=== PATIENT | female | born 1945 | race African-American/Black ===

== ENCOUNTER 2020-07-15 10:58 | Inpatient (IN) | payer MEDICARE, OTHER ==
[~2020-07-15] VITALS: Ht 157.5 cm; Wt 115.4 kg
[~2020-07-15 10:58] MED LIST: ATENOLOL PO; BUMETANIDE PO; CLIN300C12 PO; DOXAZOSIN PO; FAMOTIDINE PO; FURO-152 PO; GABAPENTIN PO; HYDR-1348 PO; HYDRALAZINE PO; LOSARTAN; MEGESTROL PO; METOCLOPRAMIDE; METOCLOPRAMIDE PO; MINO2.5T19 PO; POTASSIUM CHL PO; PRAMIPEXOLE; PRIMIDONE; SIMVASTATIN PO
[2020-07-15] MEDS ORDERED: IBUPROFEN 600MG TABLET PO STA ×2 (11:32)
[2020-07-15 12:54] LABS: CLARITY URINE CLEAR (CLEAR); COLOR URINE YELLOW (YELLOW); KETONES URINE TRACE (NEGATIVE); LEUKOCYTE ESTERASE URINE NEGATIVE (NEGATIVE); NITRITE URINE NEGATIVE (NEGATIVE); OCCULT BLOOD URINE NEGATIVE (NEGATIVE); PROTEIN URINE NEGATIVE (NEGATIVE); SPECIFIC GRAVITY URINE 1.021 (1.005-1.030); UROBILINOGEN URINE 0.2 E.U./dL (0.2-1.0)
[2020-07-15] MEDS ORDERED: HYDROCODONE/ACETAMINOPHEN 5/325MG TABLET PO STA (13:30)
[2020-07-15] MEDS ORDERED: ACETAMINOPHEN 325MG TABLET PO PRN (17:30)
[2020-07-15 19:15] LABS: BASOPHILS % 0.9 % (0.0-2.0); EOSINOPHILS % 1.8 % (0.0-5.0); HEMATOCRIT. 32.3 % (36.0-48.0); HEMOGLOBIN. 10.8 g/dL (12.0-16.0); LYMPHOCYTES % 13.1 % (20.0-50.0); MEAN CORPUSCULAR HEMOGLOBIN 29.1 pg (28.0-32.0); MEAN CORPUSCULAR VOLUME 86.7 fL (81.0-99.0); MEAN PLATELET VOLUME 8.8 fl (7.4-10.4); MONOCYTES % 11.8 % (2.0-8.0); NEUTROPHILS % 72.4 % (40.0-76.0); PLATELET 283 x1000/uL (130-400); RED BLOOD CELL COUNT 3.72 mill/uL (4.2-5.4); RED CELL DISTRIBUTION WIDTH 14.6 % (11.6-14.6)
[2020-07-15 19:20] LABS: CHLORIDE 108 mEq/L (98-107)
[2020-07-15 19:24] LABS: PROTHROMBIN TIME 11.2 sec (9.6-11.0)
[2020-07-15] MEDS ORDERED: CLONIDINE 0.2MG TABLET PO PRN (21:45)
[2020-07-15] MEDS: HYDROCODONE/ACETAMINOPHEN 10/325MG TABLET PO PRN (22:37)
[2020-07-15] MEDS: HYDRALAZINE 20MG/ML VIAL IV PRN (22:39)
[2020-07-16] VITALS (7 sets, daily range): BP systolic 150–175; BP diastolic 58–97
[2020-07-16] MEDS ORDERED: CLONIDINE 0.1MG TABLET PO PRN (01:30)
[2020-07-16] MEDS: LORATADINE 10MG TABLET PO SCH ×2 (02:30→08:49)
[2020-07-16] MEDS: HYDROCODONE/ACETAMINOPHEN 10/325MG TABLET PO PRN (07:30)
[2020-07-16] MEDS ORDERED: DOCUSATE SODIUM 100MG CAPSULE PO PRN (12:00)
[2020-07-16] MEDS ORDERED: ONDANSETRON HCL 4MG/2ML INJ IV PRN (12:00)
[2020-07-16] MEDS ORDERED: MORPHINE SULFATE 2 MG/ML CPJ (NOT FOR IM USE) IV PRN (12:00)
[2020-07-16] MEDS ORDERED: ACETAMINOPHEN 650MG SUPP PR PRN (12:00)
[2020-07-16] MEDS ORDERED: GUAIFENESIN 200MG/10ML SUGAR FREE UDC PO PRN (12:00)
[2020-07-16] MEDS ORDERED: IPRATROPIUM/ALBUTEROL 0.5-3(2.5)MG/3ML NEB NEB PRN (12:00)
[2020-07-16] MEDS ORDERED: MAGNESIUM/ALUMINUM HYDROXIDE/SIMETHICONE 30ML UDC PO PRN (12:00)
[2020-07-16] MEDS ORDERED: NA PHOS,M-B/NA PHOS,DI-BA ENEMA 118ML PR PRN (12:00)
[2020-07-16] MEDS: ENOXAPARIN 30MG/0.3ML SYR SUBCUT SCH (14:50)
[2020-07-16] MEDS: CLONIDINE 0.1MG TABLET PO PRN ×2 (14:50→23:59)
[2020-07-16] MEDS: LORAZEPAM 0.5MG TABLET PO PRN ×2 (14:51→23:59)
[2020-07-16 16:50] LABS: BASOPHILS % 0.9 % (0.0-2.0); EOSINOPHILS % 1.5 % (0.0-5.0); HEMATOCRIT. 32.5 % (36.0-48.0); HEMOGLOBIN. 11.1 g/dL (12.0-16.0); LYMPHOCYTES % 13.3 % (20.0-50.0); MEAN CORPUSCULAR HEMOGLOBIN 29.3 pg (28.0-32.0); MEAN PLATELET VOLUME 8.3 fl (7.4-10.4); NEUTROPHILS % 72.3 % (40.0-76.0); PLATELET 278 x1000/uL (130-400); RED BLOOD CELL COUNT 3.78 mill/uL (4.2-5.4); RED CELL DISTRIBUTION WIDTH 14.3 % (11.6-14.6)
[2020-07-16 16:57] LABS: CHLORIDE 109 mEq/L (98-107)
[2020-07-16 17:02] LABS: TOTAL IRON BINDING CAPACITY 258 ug/dL (250-450)
[2020-07-16 17:24] LABS: CLARITY URINE CLEAR (CLEAR); COLOR URINE YELLOW (YELLOW); KETONES URINE NEGATIVE (NEGATIVE); LEUKOCYTE ESTERASE URINE NEGATIVE (NEGATIVE); NITRITE URINE NEGATIVE (NEGATIVE); OCCULT BLOOD URINE 1+ (NEGATIVE); PH URINE 7.5 (4.5-8.0); PROTEIN URINE NEGATIVE (NEGATIVE); SPECIFIC GRAVITY URINE 1.011 (1.005-1.030); UROBILINOGEN URINE 0.2 E.U./dL (0.2-1.0)
[2020-07-16 17:36] LABS: *AMPHETAMINES SCREEN URINE NEGATIVE (NEGATIVE); *BARBITURATES SCREEN URINE NEGATIVE (NEGATIVE); *BENZODIAZEPINES SCREEN URINE NEGATIVE (NEGATIVE); *COCAINE SCREEN URINE NEGATIVE (NEGATIVE); METHADONE URINE SCREEN NEGATIVE (NEGATIVE); OPIATES URINE SCREEN PRESUMTIVE POSITIVE (NEGATIVE)
[2020-07-16 17:37] LABS: CANNABINOID URINE SCREEN NEGATIVE (NEGATIVE); PHENCYCLIDINE URINE SCREEN NEGATIVE (NEGATIVE)
[2020-07-16] MEDS: HYDRALAZINE 20MG/ML VIAL IV PRN (17:37)
[2020-07-16] MEDS: HYDROCODONE/ACETAMINOPHEN 5/325MG TABLET PO PRN (19:31)
[2020-07-16] MEDS: DIPHENHYDRAMINE 50MG/ML VIAL IV PRN (20:30)
[2020-07-16] MEDS: FAMOTIDINE 20MG TABLET PO SCH (20:31)
[2020-07-16] MEDS: AMLODIPINE 5MG TABLET PO SCH (20:31)
[2020-07-16] MEDS: ATORVASTATIN CALCIUM 20MG TABLET PO SCH (20:31)
[2020-07-17] VITALS: BP 178/76
[2020-07-17] MEDS: ENOXAPARIN 30MG/0.3ML SYR SUBCUT SCH ×2 (01:25→14:28)
[2020-07-17] MEDS: HYDROCODONE/ACETAMINOPHEN 5/325MG TABLET PO PRN (01:26)
[2020-07-17 04:00] VITALS: BP 202/91
[2020-07-17] MEDS: HYDRALAZINE 20MG/ML VIAL IV PRN (04:34)
[2020-07-17 07:11] LABS: BASOPHILS % 0.7 % (0.0-2.0); EOSINOPHILS % 1.9 % (0.0-5.0); HEMATOCRIT. 34.2 % (36.0-48.0); HEMOGLOBIN. 11.5 g/dL (12.0-16.0); LYMPHOCYTES % 12.9 % (20.0-50.0); MEAN CORPUSCULAR HEMOGLOBIN 29.7 pg (28.0-32.0); MEAN CORPUSCULAR VOLUME 88.3 fL (81.0-99.0); MEAN PLATELET VOLUME 8.8 fl (7.4-10.4); MONOCYTES % 10.1 % (2.0-8.0); NEUTROPHILS % 74.4 % (40.0-76.0); PLATELET 219 x1000/uL (130-400); RED BLOOD CELL COUNT 3.87 mill/uL (4.2-5.4); RED CELL DISTRIBUTION WIDTH 14.5 % (11.6-14.6)
[2020-07-17 07:41] LABS: CHLORIDE 112 mEq/L (98-107)
[2020-07-17 07:49] LABS: LDL CHOLESTEROL 93 mg/dL (5-100)
[2020-07-17 07:51] LABS: HDL CHOLESTEROL 40 mg/dL (40-59); T4 FREE 1.05 ng/dL (0.76-1.46)
[2020-07-17 08:04] VITALS: BP 219/85
[2020-07-17] MEDS: CLONIDINE 0.1MG TABLET PO PRN (08:32)
[2020-07-17] MEDS: AMLODIPINE 5MG TABLET PO SCH ×2 (08:32→20:36)
[2020-07-17] MEDS: LORATADINE 10MG TABLET PO SCH (08:32)
[2020-07-17] MEDS ORDERED: HYDRALAZINE HCL 25MG TABLET PO SCH (09:45)
[2020-07-17] MEDS ORDERED: LOSARTAN POTASSIUM 50 MG TABLET PO SCH (09:45)
[2020-07-17] MEDS ORDERED: HYDRALAZINE 20MG/ML VIAL IV PRN (09:45)
[2020-07-17] MEDS: CLONIDINE 0.2MG TABLET PO SCH ×3 (09:58→22:44)
[2020-07-17] MEDS ORDERED: POTASSIUM CHLORIDE 20MEQ TABLET SR PO NR (10:45)
[2020-07-17] MEDS ORDERED: HYDRALAZINE HCL 50MG TABLET PO NR (10:45)
[2020-07-17] MEDS: ATENOLOL 50 MG TABLET PO SCH ×2 (11:22→20:36)
[2020-07-17 12:00] VITALS: BP 161/78
[2020-07-17] MEDS ORDERED: HYDROCODONE/ACETAMINOPHEN 10/325MG TABLET PO PRN (13:15)
[2020-07-17] MEDS: HYDRALAZINE HCL 25MG TABLET PO SCH ×2 (14:09→22:44)
[2020-07-17 16:00] VITALS: BP 128/83
[2020-07-17] MEDS: LOSARTAN POTASSIUM 50 MG TABLET PO SCH (17:43)
[2020-07-17 20:00] VITALS: BP 141/63
[2020-07-17] MEDS ORDERED: DEXT 5%/0.45% NACL 1000ML 1,000 ML IV SCH (20:00)
[2020-07-17] MEDS: ATORVASTATIN CALCIUM 20MG TABLET PO SCH (20:36)
[2020-07-17] MEDS: FAMOTIDINE 20MG TABLET PO SCH (20:36)
[2020-07-17] MEDS ORDERED: ENOXAPARIN 30MG/0.3ML SYR SUBCUT SCH (23:00)
[2020-07-18] VITALS (47 sets, daily range): BP systolic 100–168; BP diastolic 34–98
[2020-07-18] MEDS: LORATADINE 10MG TABLET PO SCH (00:47)
[2020-07-18] MEDS ORDERED: HYDRALAZINE 10 MG in SODIUM CHLORIDE 0.9% 49.5 ML IV PRN (02:00)
[2020-07-18] MEDS: CLONIDINE 0.1MG TABLET PO PRN (02:42)
[2020-07-18] MEDS: CLONIDINE 0.2MG TABLET PO SCH ×3 (06:25→21:33)
[2020-07-18] MEDS: HYDRALAZINE HCL 25MG TABLET PO SCH ×3 (06:25→21:32)
[2020-07-18 07:57] LABS: BASOPHILS % 0.9 % (0.0-2.0); EOSINOPHILS % 3.2 % (0.0-5.0); HEMATOCRIT. 33.7 % (36.0-48.0); HEMOGLOBIN. 11.6 g/dL (12.0-16.0); LYMPHOCYTES % 11.3 % (20.0-50.0); MEAN CORPUSCULAR HEMOGLOBIN 29.6 pg (28.0-32.0); MEAN CORPUSCULAR VOLUME 86.3 fL (81.0-99.0); MEAN PLATELET VOLUME 8.4 fl (7.4-10.4); MONOCYTES % 11.9 % (2.0-8.0); NEUTROPHILS % 72.7 % (40.0-76.0); PLATELET 250 x1000/uL (130-400); RED CELL DISTRIBUTION WIDTH 14.5 % (11.6-14.6)
[2020-07-18 08:14] LABS: CHLORIDE 111 mEq/L (98-107)
[2020-07-18] MEDS: ATENOLOL 50 MG TABLET PO SCH ×2 (09:12→21:00)
[2020-07-18] MEDS: LOSARTAN POTASSIUM 50 MG TABLET PO SCH ×2 (09:12→17:00)
[2020-07-18] MEDS: AMLODIPINE 5MG TABLET PO SCH ×2 (09:13→21:32)
[2020-07-18] MEDS ORDERED: GENTAMICIN SULF 40MG/ML 2ML VIAL ONE (09:39)
[2020-07-18] MEDS ORDERED: LIDOCAINE HCL/EPINEPHRINE 1%-EPI 1:100,000 20 ML VIAL ONE (09:39)
[2020-07-18] MEDS ORDERED: THROMBIN (BOVINE) 5000 UNITS/VIAL TOP ONE (09:40)
[2020-07-18] MEDS ORDERED: HYDROMORPHONE HCL/PF 2MG/ML (OR) ONE (10:39)
[2020-07-18] MEDS ORDERED: PROPOFOL 200MG/20ML VIAL IV ONE (10:39)
[2020-07-18] MEDS ORDERED: ROCURONIUM BROMIDE 10MG/ML VIAL 5ML IV ONE ×2 (10:58→12:02)
[2020-07-18] MEDS ORDERED: ONDANSETRON HCL 4MG/2ML INJ ONE (12:08)
[2020-07-18] MEDS ORDERED: DEXAMETHASONE 4MG/ML 1ML VIAL ONE (12:08)
[2020-07-18] MEDS ORDERED: EPHEDRINE SULFATE 50MG/ML VIAL ONE (12:33)
[2020-07-18] MEDS ORDERED: PHENYLEPHRINE HCL 10 MG/ML 1ML (IV VIAL) IV ONE (12:33)
[2020-07-18] MEDS ORDERED: GLYCOPYRROLATE 0.2 MG/ML 2ML VIAL ONE (12:51)
[2020-07-18] MEDS ORDERED: NEOSTIGMINE METHYLSULFATE 1MG/ML 10 ML VIAL ONE (12:51)
[2020-07-18 13:41] LABS: BASOPHILS % 0.5 % (0.0-2.0); EOSINOPHILS % 2.8 % (0.0-5.0); HEMATOCRIT. 27.3 % (36.0-48.0); HEMOGLOBIN. 9.1 g/dL (12.0-16.0); LYMPHOCYTES % 16.3 % (20.0-50.0); MEAN CORPUSCULAR HEMOGLOBIN 29.1 pg (28.0-32.0); MEAN PLATELET VOLUME 8.4 fl (7.4-10.4); MONOCYTES % 8.5 % (2.0-8.0); NEUTROPHILS % 71.9 % (40.0-76.0); PLATELET 269 x1000/uL (130-400); RED BLOOD CELL COUNT 3.14 mill/uL (4.2-5.4); RED CELL DISTRIBUTION WIDTH 14.5 % (11.6-14.6)
[2020-07-18] MEDS ORDERED: CEFAZOLIN SODIUM 1000MG/VIAL IV SCH (14:00)
[2020-07-18] MEDS: DEXT 5%/LACTATED RINGERS 1,000 ML IV SCH ×2 (14:33→20:36)
[2020-07-18] MEDS: HYDRALAZINE 20MG/ML VIAL IV PRN (14:34)
[2020-07-18] MEDS: MORPHINE SULFATE 4 MG/ML CPJ (NOT FOR IM USE) IV PRN ×4 (14:34→21:34)
[2020-07-18] MEDS ORDERED: CEFAZOLIN 1000MG PREMIX 50 ML IV SCH (15:00)
[2020-07-18 15:40] LABS: BG BASE EXCESS -2.3 mmol/L (-2.0-2.0); BG CARBOXYHEMOGLOBIN 0.2 % (0.5-1.5); BG DEOXYHEMOGLOBIN 1.4 % (0.0-5.0); BG FRACTION INSPIRED OXYGEN 60; BG HCO3 ACT 22.6 mmol/L (22.0-26.0); BG METHEMOGLOBIN 0.4 % (0.0-1.5); BG OXYGEN SATURATION 98.6 % (92.0-98.5); BG PO2 170.9 mmHg (75.0-100.0); BG SAMPLE SITE RIGHT RADIAL; BG TOTAL HEMOGLOBIN 10.8 g/dL (12.0-18.0); BG VENT MODE MASK - SIMPLE
[2020-07-18] MEDS: NICARDIPINE 100 MG in SODIUM CHLORIDE 0.9% 60 ML IV PRN (16:51)
[2020-07-18 19:57] LABS: HEMATOCRIT 34.6 % (36.0-48.0); HEMOGLOBIN 11.4 g/dL (12.0-16.0)
[2020-07-18] MEDS: CEFAZOLIN 1000MG PREMIX 50 ML IV SCH (21:32)
[2020-07-18] MEDS: ATORVASTATIN CALCIUM 20MG TABLET PO SCH (21:32)
[2020-07-18] MEDS: FAMOTIDINE 20MG TABLET PO SCH (21:33)
[2020-07-18] MEDS: DIPHENHYDRAMINE 50MG/ML VIAL IV PRN (21:33)
[2020-07-19] VITALS (72 sets, daily range): BP systolic 87–176; BP diastolic 35–91
[2020-07-19] MEDS: MORPHINE SULFATE 4 MG/ML CPJ (NOT FOR IM USE) IV PRN ×5 (00:39→17:51)
[2020-07-19] MEDS: DEXT 5%/LACTATED RINGERS 1,000 ML IV SCH ×2 (01:55→08:32)
[2020-07-19] MEDS: CEFAZOLIN 1000MG PREMIX 50 ML IV SCH ×3 (05:13→21:02)
[2020-07-19] MEDS: HYDRALAZINE HCL 25MG TABLET PO SCH ×3 (05:14→21:03)
[2020-07-19] MEDS: CLONIDINE 0.2MG TABLET PO SCH ×3 (05:14→21:04)
[2020-07-19 05:56] LABS: HEMATOCRIT. 29.7 % (36.0-48.0); HEMOGLOBIN. 9.8 g/dL (12.0-16.0); MEAN CORPUSCULAR HEMOGLOBIN 28.9 pg (28.0-32.0); MEAN CORPUSCULAR VOLUME 87.1 fL (81.0-99.0); MEAN PLATELET VOLUME 8.7 fl (7.4-10.4); PLATELET 236 x1000/uL (130-400); RED BLOOD CELL COUNT 3.41 mill/uL (4.2-5.4); RED CELL DISTRIBUTION WIDTH 14.8 % (11.6-14.6)
[2020-07-19 06:06] LABS: CHLORIDE 112 mEq/L (98-107)
[2020-07-19] MEDS: AMLODIPINE 5MG TABLET PO SCH ×2 (08:23→21:03)
[2020-07-19] MEDS: ATENOLOL 50 MG TABLET PO SCH ×2 (08:23→21:03)
[2020-07-19] MEDS: LOSARTAN POTASSIUM 50 MG TABLET PO SCH ×2 (08:24→16:02)
[2020-07-19] MEDS: LORATADINE 10MG TABLET PO SCH (08:30)
[2020-07-19] MEDS: HYDRALAZINE 20MG/ML VIAL IV PRN ×2 (14:00→18:53)
[2020-07-19 14:26] LABS: PLATELET ESTIMATE NORMAL
[2020-07-19] MEDS: CLONIDINE 0.1MG TABLET PO PRN (15:31)
[2020-07-19] MEDS: ACETAMINOPHEN 325MG TABLET PO PRN (17:19)
[2020-07-19] MEDS: NICARDIPINE 100 MG in SODIUM CHLORIDE 0.9% 60 ML IV PRN (17:46)
[2020-07-19] MEDS: ATORVASTATIN CALCIUM 20MG TABLET PO SCH (21:03)
[2020-07-19] MEDS: FAMOTIDINE 20MG TABLET PO SCH (21:04)
[2020-07-20] VITALS (62 sets, daily range): BP systolic 94–145; BP diastolic 23–81
[2020-07-20] MEDS: CEFAZOLIN 1000MG PREMIX 50 ML IV SCH ×3 (04:27→20:06)
[2020-07-20] MEDS: MORPHINE SULFATE 4 MG/ML CPJ (NOT FOR IM USE) IV PRN ×2 (05:14→12:47)
[2020-07-20] MEDS: CLONIDINE 0.2MG TABLET PO SCH ×3 (05:56→22:06)
[2020-07-20] MEDS: HYDRALAZINE HCL 25MG TABLET PO SCH ×3 (05:56→22:06)
[2020-07-20 06:05] LABS: HEMATOCRIT. 23.7 % (36.0-48.0); HEMOGLOBIN. 7.9 g/dL (12.0-16.0); MEAN CORPUSCULAR HEMOGLOBIN 29.5 pg (28.0-32.0); MEAN CORPUSCULAR VOLUME 88.1 fL (81.0-99.0); RED BLOOD CELL COUNT 2.69 mill/uL (4.2-5.4); RED CELL DISTRIBUTION WIDTH 14.7 % (11.6-14.6)
[2020-07-20 06:18] LABS: CHLORIDE 109 mEq/L (98-107)
[2020-07-20] MEDS: ACETAMINOPHEN 325MG TABLET PO PRN ×2 (07:49→17:16)
[2020-07-20] MEDS: AMLODIPINE 5MG TABLET PO SCH ×2 (09:25→20:07)
[2020-07-20] MEDS: LOSARTAN POTASSIUM 50 MG TABLET PO SCH ×2 (09:25→16:51)
[2020-07-20] MEDS: ATENOLOL 50 MG TABLET PO SCH ×2 (09:26→20:07)
[2020-07-20] MEDS: LORATADINE 10MG TABLET PO SCH (09:26)
[2020-07-20 10:31] LABS: PLATELET ESTIMATE NORMAL
[2020-07-20 10:32] LABS: PLATELET 197 x1000/uL (130-400)
[2020-07-20 10:33] LABS: MEAN PLATELET VOLUME 9.6 fl (7.4-10.4)
[2020-07-20] MEDS: ATORVASTATIN CALCIUM 20MG TABLET PO SCH (20:06)
[2020-07-20] MEDS: FAMOTIDINE 20MG TABLET PO SCH (20:07)
[2020-07-21] VITALS (50 sets, daily range): BP systolic 96–170; BP diastolic 22–80
[2020-07-21 05:19] LABS: HEMOGLOBIN. 8.2 g/dL (12.0-16.0); MEAN CORPUSCULAR HEMOGLOBIN 28.5 pg (28.0-32.0); MEAN CORPUSCULAR VOLUME 86.4 fL (81.0-99.0); MEAN PLATELET VOLUME 8.5 fl (7.4-10.4); PLATELET 186 x1000/uL (130-400); RED BLOOD CELL COUNT 2.89 mill/uL (4.2-5.4); RED CELL DISTRIBUTION WIDTH 14.4 % (11.6-14.6)
[2020-07-21] MEDS: CEFAZOLIN 1000MG PREMIX 50 ML IV SCH (05:22)
[2020-07-21] MEDS: CLONIDINE 0.2MG TABLET PO SCH ×3 (05:22→22:00)
[2020-07-21] MEDS: HYDRALAZINE HCL 25MG TABLET PO SCH ×3 (05:22→22:01)
[2020-07-21] MEDS: MORPHINE SULFATE 4 MG/ML CPJ (NOT FOR IM USE) IV PRN ×2 (05:47→10:56)
[2020-07-21 05:56] LABS: CHLORIDE 109 mEq/L (98-107)
[2020-07-21] MEDS: LOSARTAN POTASSIUM 50 MG TABLET PO SCH ×2 (08:35→16:14)
[2020-07-21] MEDS: LORATADINE 10MG TABLET PO SCH (08:35)
[2020-07-21] MEDS: ATENOLOL 50 MG TABLET PO SCH ×2 (08:35→21:17)
[2020-07-21] MEDS: AMLODIPINE 5MG TABLET PO SCH ×2 (08:35→21:17)
[2020-07-21 09:13] LABS: PLATELET ESTIMATE NORMAL
[2020-07-21] MEDS ORDERED: LACTULOSE 20G/30ML UDC PO NR (10:30)
[2020-07-21] MEDS: HYDRALAZINE 20MG/ML VIAL IV PRN ×2 (10:56→15:02)
[2020-07-21] MEDS: DOCUSATE SODIUM 100MG CAPSULE PO SCH ×2 (11:33→16:14)
[2020-07-21] MEDS: ACETAMINOPHEN 325MG TABLET PO PRN ×2 (14:48→21:29)
[2020-07-21] MEDS: ATORVASTATIN CALCIUM 20MG TABLET PO SCH (21:16)
[2020-07-21] MEDS: FAMOTIDINE 20MG TABLET PO SCH (21:17)
[2020-07-22] VITALS (12 sets, daily range): BP systolic 101–167; BP diastolic 28–93
[2020-07-22] MEDS: CLONIDINE 0.2MG TABLET PO SCH ×3 (05:45→22:13)
[2020-07-22] MEDS: HYDRALAZINE HCL 25MG TABLET PO SCH (05:45)
[2020-07-22 06:00] LABS: CHLORIDE 107 mEq/L (98-107)
[2020-07-22 06:35] LABS: BASOPHILS % 0.3 % (0.0-2.0); HEMOGLOBIN. 8.5 g/dL (12.0-16.0); LYMPHOCYTES % 7.2 % (20.0-50.0); MEAN CORPUSCULAR HEMOGLOBIN 29.4 pg (28.0-32.0); MEAN PLATELET VOLUME 8.9 fl (7.4-10.4); MONOCYTES % 10.8 % (2.0-8.0); NEUTROPHILS % 79.7 % (40.0-76.0); PLATELET 201 x1000/uL (130-400); RED BLOOD CELL COUNT 2.88 mill/uL (4.2-5.4); RED CELL DISTRIBUTION WIDTH 14.1 % (11.6-14.6)
[2020-07-22] MEDS: DOCUSATE SODIUM 100MG CAPSULE PO SCH ×2 (09:10→17:36)
[2020-07-22] MEDS: AMLODIPINE 5MG TABLET PO SCH ×2 (09:11→21:49)
[2020-07-22] MEDS: LOSARTAN POTASSIUM 50 MG TABLET PO SCH ×2 (09:11→17:36)
[2020-07-22] MEDS: LORATADINE 10MG TABLET PO SCH (09:11)
[2020-07-22] MEDS: ATENOLOL 50 MG TABLET PO SCH ×2 (09:11→21:48)
[2020-07-22] MEDS: DOXAZOSIN MESYLATE 4MG TABLET PO SCH ×2 (12:16→17:36)
[2020-07-22] MEDS: HYDRALAZINE HCL 100MG TABLET PO SCH ×2 (14:52→22:13)
[2020-07-22] MEDS: ATORVASTATIN CALCIUM 20MG TABLET PO SCH (21:47)
[2020-07-22] MEDS: FAMOTIDINE 20MG TABLET PO SCH (21:47)
[2020-07-23] VITALS (11 sets, daily range): BP systolic 110–150; BP diastolic 32–75
[2020-07-23] MEDS: ACETAMINOPHEN 325MG TABLET PO PRN (00:15)
[2020-07-23 06:19] LABS: BASOPHILS % 0.3 % (0.0-2.0); EOSINOPHILS % 1.9 % (0.0-5.0); HEMATOCRIT. 26.5 % (36.0-48.0); HEMOGLOBIN. 8.8 g/dL (12.0-16.0); LYMPHOCYTES % 11.6 % (20.0-50.0); MEAN CORPUSCULAR HEMOGLOBIN 28.9 pg (28.0-32.0); MEAN CORPUSCULAR VOLUME 86.9 fL (81.0-99.0); MEAN PLATELET VOLUME 8.7 fl (7.4-10.4); MONOCYTES % 10.4 % (2.0-8.0); NEUTROPHILS % 75.8 % (40.0-76.0); PLATELET 263 x1000/uL (130-400); RED BLOOD CELL COUNT 3.06 mill/uL (4.2-5.4)
[2020-07-23] MEDS: HYDRALAZINE HCL 100MG TABLET PO SCH ×2 (06:26→13:45)
[2020-07-23] MEDS: CLONIDINE 0.2MG TABLET PO SCH ×2 (06:27→13:45)
[2020-07-23] MEDS: DOCUSATE SODIUM 100MG CAPSULE PO SCH ×2 (09:23→16:54)
[2020-07-23] MEDS: DOXAZOSIN MESYLATE 4MG TABLET PO SCH ×2 (09:23→16:59)
[2020-07-23] MEDS: LOSARTAN POTASSIUM 50 MG TABLET PO SCH ×2 (09:24→16:54)
[2020-07-23] MEDS: AMLODIPINE 5MG TABLET PO SCH (09:24)
[2020-07-23] MEDS: ATENOLOL 50 MG TABLET PO SCH (09:24)
[2020-07-23] MEDS: LORATADINE 10MG TABLET PO SCH (09:24)
[2020-07-23] MEDS ORDERED: HYDROCODONE/ACETAMINOPHEN 5/325MG TABLET PO PRN (14:00)
== END 2020-07-23 20:35 | DRG 519 ==
LOC: ER 10:58 → 6WST 17:21 → EDBEDREQ 17:25 → ENRESERV 21:14 → 6WST 07-16 00:41 → 6EST 07-18 01:51 → MICUSO 07-18 13:37 → MICUNO 07-18 16:00 → 3WST 07-21 16:30
PROVIDERS: ADMIT Internal Medicine; ATTEND Internal Medicine
PROC: 00NY0ZZ Release Lumbar Spinal Cord, Open Approach (ICD-10-PCS; principal; 2020-07-18)
PROC: 01NB0ZZ Release Lumbar Nerve, Open Approach (ICD-10-PCS; 2020-07-18)
PROC: 30233N1 Transfusion of Nonautologous Red Blood Cells into Peripheral Vein, Percutaneous Approach (ICD-10-PCS; 2020-07-18)
PROC: 4A11X4G Monitoring of Peripheral Nervous Electrical Activity, Intraoperative, External Approach (ICD-10-PCS; 2020-07-18)
PROC: 5A09357 Assistance with Respiratory Ventilation, Less than 24 Consecutive Hours, Continuous Positive Airway Pressure (ICD-10-PCS; 2020-07-18)
PROC: 5A09357 Assistance with Respiratory Ventilation, Less than 24 Consecutive Hours, Continuous Positive Airway Pressure (ICD-10-PCS; 2020-07-19)
PROC: 5A1935Z Respiratory Ventilation, Less than 24 Consecutive Hours (ICD-10-PCS; 2020-07-19)
PROC: 0BH17EZ Insertion of Endotracheal Airway into Trachea, Via Natural or Artificial Opening (ICD-10-PCS; 2020-07-19)
PROC: 5A09357 Assistance with Respiratory Ventilation, Less than 24 Consecutive Hours, Continuous Positive Airway Pressure (ICD-10-PCS; 2020-07-20)
PROC: 5A09357 Assistance with Respiratory Ventilation, Less than 24 Consecutive Hours, Continuous Positive Airway Pressure (ICD-10-PCS; 2020-07-22)
PROC: 5A09357 Assistance with Respiratory Ventilation, Less than 24 Consecutive Hours, Continuous Positive Airway Pressure (ICD-10-PCS; 2020-07-23)
DX: M48.061 Spinal stenosis, lumbar region without neurogenic claudication (principal); E66.2 Morbid (severe) obesity with alveolar hypoventilation; I31.3 Pericardial effusion (noninflammatory); Z68.42 Body mass index [BMI] 45.0-49.9, adult; J98.11 Atelectasis; G99.2 Myelopathy in diseases classified elsewhere; M54.40 Lumbago with sciatica, unspecified side; I11.9 Hypertensive heart disease without heart failure; E78.5 Hyperlipidemia, unspecified; E88.09 Other disorders of plasma-protein metabolism, not elsewhere classified; D64.9 Anemia, unspecified; M16.0 Bilateral primary osteoarthritis of hip; G89.29 Other chronic pain; I44.0 Atrioventricular block, first degree; Z87.891 Personal history of nicotine dependence; M54.16 Radiculopathy, lumbar region; Z20.822 Contact with and (suspected) exposure to COVID-19; Z79.82 Long term (current) use of aspirin; Z79.899 Other long term (current) drug therapy
CPT/HCPCS: 36415; 36600; 71045; 72100; 72148; 73522; 76000; 80048; 80053; 80061; 80305; 81003; 82375; 82805; 83540; 83550; 83735; 84439; 84443; 84484; 85014; 85018; 85025; 86850; 86900; 86920; 87426; 88311; 93005; 93306; 93970; 94660; 95863; 95925; 95926; 95928; 95929; 97110; 97116; 97162; 97163; 97166; 97530; 97760; 99285; C1725; J0360; J0690; J1100; J1170; J1200; J1580; J1650; J2270; J2370; J2405; J2704; J2710; J3490; J7050; J7121; P9016

== ENCOUNTER 2020-11-18 15:43 | Emergency (ER) | payer OTHER ==
[~2020-11-18] VITALS: Ht 154.9 cm; Wt 100.0 kg
[~2020-11-18 15:43] MED LIST changes: -CLIN300C12 PO; -FURO-152 PO; -METOCLOPRAMIDE; -PRIMIDONE
[2020-11-18 18:56] LABS: BASOPHILS % 0.6 % (0.0-2.0); EOSINOPHILS % 2.4 % (0.0-5.0); HEMATOCRIT. 34.5 % (36.0-48.0); HEMOGLOBIN. 11.3 g/dL (12.0-16.0); LYMPHOCYTES % 15.1 % (20.0-50.0); MEAN CORPUSCULAR HEMOGLOBIN 28.7 pg (28.0-32.0); MEAN CORPUSCULAR VOLUME 87.4 fL (81.0-99.0); MONOCYTES % 10.2 % (2.0-8.0); NEUTROPHILS % 71.7 % (40.0-76.0); PLATELET 218 x1000/uL (130-400); RED BLOOD CELL COUNT 3.95 mill/uL (4.2-5.4); RED CELL DISTRIBUTION WIDTH 16.7 % (11.6-14.6)
[2020-11-18 19:03] LABS: CHLORIDE 107 mEq/L (98-107)
[2020-11-18] MEDS ORDERED: CEFTRIAXONE 1 G PREMIX 50 ML IV ONE (20:15)
[2020-11-18] MEDS ORDERED: TRAMADOL 50MG TABLET PO PRN (23:45)
[2020-11-19] MEDS ORDERED: CLONIDINE 0.1MG TABLET PO PRN ×2 (03:30→10:30)
[2020-11-19] MEDS ORDERED: ACETAMINOPHEN 325MG TABLET PO PRN ×2 (03:30→10:30)
[2020-11-19] MEDS ORDERED: ATENOLOL 50 MG TABLET PO NR (10:30)
[2020-11-19] MEDS ORDERED: MAGNESIUM/ALUMINUM HYDROXIDE/SIMETHICONE 30ML UDC PO PRN (10:30)
[2020-11-19] MEDS ORDERED: ONDANSETRON HCL 4MG/2ML INJ IV PRN (10:30)
[2020-11-19] MEDS ORDERED: ACETAMINOPHEN 650MG SUPP PR PRN (10:30)
[2020-11-19] MEDS ORDERED: DOCUSATE SODIUM 100MG CAPSULE PO PRN (10:30)
[2020-11-19] MEDS ORDERED: IPRATROPIUM/ALBUTEROL 0.5-3(2.5)MG/3ML NEB NEB PRN (10:30)
[2020-11-19] MEDS ORDERED: LORAZEPAM 0.5MG TABLET PO PRN (10:30)
[2020-11-19] MEDS ORDERED: DIPHENHYDRAMINE 50MG/ML VIAL IV PRN (10:30)
[2020-11-19] MEDS ORDERED: CEFTRIAXONE 1 G PREMIX 50 ML IV NR (10:30)
[2020-11-19] MEDS ORDERED: NA PHOS,M-B/NA PHOS,DI-BA ENEMA 118ML PR PRN (10:30)
[2020-11-19] MEDS ORDERED: GUAIFENESIN 200MG/10ML SUGAR FREE UDC PO PRN (10:30)
[2020-11-19] MEDS ORDERED: HYDROCODONE/ACETAMINOPHEN 5/325MG TABLET PO PRN (10:30)
[2020-11-19] MEDS ORDERED: NALOXONE HCL 0.4MG/ML VIAL IV PRN (10:45)
[2020-11-19] MEDS ORDERED: ENOXAPARIN 30MG/0.3ML SYR SUBCUT SCH (11:00)
[2020-11-19] MEDS ORDERED: HYDRALAZINE 20MG/ML VIAL IV NR (13:30)
[2020-11-19] MEDS ORDERED: HYDRALAZINE HCL 50MG TABLET PO SCH (14:00)
[2020-11-19] MEDS ORDERED: VANCOMYCIN 2,000 MG in DEXT 5% WATER 500 ML IV SCH (14:00)
[2020-11-19 14:25] LABS: BASOPHILS % 0.6 % (0.0-2.0); EOSINOPHILS % 2.3 % (0.0-5.0); HEMATOCRIT. 33.8 % (36.0-48.0); LYMPHOCYTES % 9.8 % (20.0-50.0); MEAN CORPUSCULAR HEMOGLOBIN 28.1 pg (28.0-32.0); MEAN CORPUSCULAR VOLUME 86.6 fL (81.0-99.0); MEAN PLATELET VOLUME 8.6 fl (7.4-10.4); MONOCYTES % 9.2 % (2.0-8.0); NEUTROPHILS % 78.1 % (40.0-76.0); PLATELET 218 x1000/uL (130-400); RED CELL DISTRIBUTION WIDTH 16.4 % (11.6-14.6)
[2020-11-19] MEDS ORDERED: LOSARTAN POTASSIUM 50 MG TABLET PO NR (14:30)
[2020-11-19 14:33] LABS: CHLORIDE 108 mEq/L (98-107)
[2020-11-19] MEDS ORDERED: ATORVASTATIN CALCIUM 10MG TABLET PO SCH (21:00)
[2020-11-19] MEDS ORDERED: ATENOLOL 50 MG TABLET PO SCH (21:00)
[2020-11-19] MEDS ORDERED: FAMOTIDINE 20MG TABLET PO SCH (21:00)
[2020-11-19 22:50] VITALS: BP 105/57
[2020-11-20] MEDS ORDERED: CEFTRIAXONE 1,000 MG in DEXTROSE 5% WATER 50 ML IV SCH (09:00)
[2020-11-20] MEDS ORDERED: SIMVASTATIN 20 MG PO SCH (09:00)
[2020-11-20] MEDS ORDERED: VANCOMYCIN 1 G PREMIX 200 ML IV SCH (09:00)
== END 2020-11-19 18:32 | disposition home or self-care (01) ==
LOC: ER 15:43 → UNDOADMIN 21:54 → MICUSO 21:54 → EDBEDREQTM 22:00 → EDBEDREQ 22:00 → MICUSO 11-19 20:03 → 6EST 11-19 20:03
DX: L03.116 Cellulitis of left lower limb (principal); I10 Essential (primary) hypertension; M19.90 Unspecified osteoarthritis, unspecified site; E78.00 Pure hypercholesterolemia, unspecified; G47.30 Sleep apnea, unspecified; D64.9 Anemia, unspecified; Z98.1 Arthrodesis status; Z88.8 Allergy status to other drugs, medicaments and biological substances
CPT/HCPCS: 36415; 80053; 85025; 87040; 93970; 99285; J0360; J0696; J1650; J3370; J7060

== ENCOUNTER 2020-12-30 12:37 | Inpatient (IN) | payer OTHER ==
[~2020-12-30] VITALS: Ht 157.5 cm; Wt 108.5 kg
[2020-12-30 14:29] LABS: HEMATOCRIT. 30.2 % (36.0-48.0); HEMOGLOBIN. 9.6 g/dL (12.0-16.0); MEAN CORPUSCULAR HEMOGLOBIN 28.5 pg (28.0-32.0); MEAN PLATELET VOLUME 8.5 fl (7.4-10.4); PLATELET 462 x1000/uL (130-400); RED BLOOD CELL COUNT 3.36 mill/uL (4.2-5.4); RED CELL DISTRIBUTION WIDTH 16.3 % (11.6-14.6)
[2020-12-30 14:37] LABS: CHLORIDE 108 mEq/L (98-107)
[2020-12-30 15:24] LABS: PLATELET ESTIMATE INCREASED
[2020-12-30] MEDS ORDERED: MORPHINE SULFATE 4 MG/ML CPJ (NOT FOR IM USE) IV STA (15:33)
[2020-12-30] MEDS ORDERED: KETOROLAC 30MG/ML VIAL IV STA (15:33)
[2020-12-30] MEDS ORDERED: SODIUM CHLORIDE 0.9% 1000ML BAG (SEPSIS BOLUS) IV ONE (15:45)
[2020-12-30] MEDS ORDERED: VANCOMYCIN 1 G PREMIX 200 ML IV ONE (15:45)
[2020-12-30] MEDS ORDERED: CEFTRIAXONE 1 G PREMIX 50 ML IV ONE (15:45)
[2020-12-30] MEDS ORDERED: LOSARTAN POTASSIUM 25 MG TABLET PO ONE (19:00)
[2020-12-30] MEDS ORDERED: ATENOLOL 25MG TABLET PO ONE (19:00)
[2020-12-30] MEDS ORDERED: CLONIDINE 0.1MG TABLET PO ONE (19:00)
[2020-12-30] MEDS ORDERED: HYDROCHLOROTHIAZIDE 12.5MG CAPSULE PO ONE (19:00)
[2020-12-30 23:00] VITALS: BP 111/46
[2020-12-31] VITALS (7 sets, daily range): BP systolic 99–154; BP diastolic 41–82
[2020-12-31] MEDS ORDERED: NALOXONE HCL 0.4 MG/ML 1ML VIAL IV PRN (00:45)
[2020-12-31] MEDS: MORPHINE SULFATE 2 MG/ML CPJ (NOT FOR IM USE) IV PRN ×4 (01:30→21:19)
[2020-12-31] MEDS ORDERED: VANCOMYCIN 1500MG in DEXTROSE 5% WATER 250ML IV SCH (05:00)
[2020-12-31] MEDS: HYDRALAZINE HCL 50MG TABLET PO SCH ×3 (07:00→21:19)
[2020-12-31] MEDS: GABAPENTIN 300MG CAPSULE PO SCH ×3 (07:00→21:19)
[2020-12-31 07:58] LABS: HEMATOCRIT. 24.9 % (36.0-48.0); MEAN CORPUSCULAR HEMOGLOBIN 28.8 pg (28.0-32.0); MEAN CORPUSCULAR VOLUME 89.7 fL (81.0-99.0); MEAN PLATELET VOLUME 8.4 fl (7.4-10.4); PLATELET 402 x1000/uL (130-400); RED BLOOD CELL COUNT 2.78 mill/uL (4.2-5.4); RED CELL DISTRIBUTION WIDTH 16.1 % (11.6-14.6)
[2020-12-31] MEDS ORDERED: ENOXAPARIN 30MG/0.3ML SYR SUBCUT SCH (09:00)
[2020-12-31] MEDS ORDERED: ENOXAPARIN 40MG/0.4ML SYR SUBCUT SCH (09:00)
[2020-12-31] MEDS ORDERED: LORATADINE 10MG TABLET PO SCH (09:00)
[2020-12-31] MEDS ORDERED: BUMETANIDE 1MG TABLET PO SCH (09:00)
[2020-12-31] MEDS ORDERED: MINOXIDIL 2.5MG TABLET PO SCH (09:00)
[2020-12-31] MEDS: DOXAZOSIN MESYLATE 4MG TABLET PO SCH ×2 (09:23→21:19)
[2020-12-31] MEDS: FAMOTIDINE 20MG TABLET PO SCH (09:23)
[2020-12-31] MEDS: ATENOLOL 50 MG TABLET PO SCH ×2 (09:24→21:19)
[2020-12-31] MEDS: ENOXAPARIN 40MG/0.4ML SYR SUBCUT SCH (09:25)
[2020-12-31 17:26] LABS: PLATELET ESTIMATE SLIGHTLY INCREASED
[2020-12-31] MEDS ORDERED: FUROSEMIDE 40MG/4ML VIAL IVP NR (17:30)
[2020-12-31] MEDS: CEFTRIAXONE 1,000 MG in DEXTROSE 5% WATER 50 ML IV SCH (17:41)
[2020-12-31] MEDS: IPRATROPIUM/ALBUTEROL 0.5-3(2.5)MG/3ML NEB HHN SCH (20:52)
[2020-12-31] MEDS: BUDESONIDE 0.5MG/2ML NEB HHN SCH (20:53)
[2021-01-01] MEDS: IPRATROPIUM/ALBUTEROL 0.5-3(2.5)MG/3ML NEB HHN SCH ×4 (02:40→20:57)
[2021-01-01 04:00] VITALS: BP 110/46
[2021-01-01] MEDS: GABAPENTIN 300MG CAPSULE PO SCH ×3 (05:42→21:21)
[2021-01-01] MEDS: HYDRALAZINE HCL 50MG TABLET PO SCH ×3 (05:42→21:38)
[2021-01-01 07:28] LABS: HEMATOCRIT. 24.2 % (36.0-48.0); MEAN CORPUSCULAR HEMOGLOBIN 28.6 pg (28.0-32.0); MEAN CORPUSCULAR VOLUME 87.2 fL (81.0-99.0); MEAN PLATELET VOLUME 8.3 fl (7.4-10.4); PLATELET 408 x1000/uL (130-400); RED BLOOD CELL COUNT 2.78 mill/uL (4.2-5.4)
[2021-01-01 08:00] VITALS: BP 118/51
[2021-01-01] MEDS ORDERED: LIDOCAINE HCL 1% 10 MG/ML 10ML VIAL ONE (08:14)
[2021-01-01] MEDS: BUDESONIDE 0.5MG/2ML NEB HHN SCH ×2 (09:59→20:57)
[2021-01-01] MEDS: FAMOTIDINE 20MG TABLET PO SCH (10:23)
[2021-01-01] MEDS: ATENOLOL 50 MG TABLET PO SCH ×2 (10:23→21:00)
[2021-01-01] MEDS: DOXAZOSIN MESYLATE 4MG TABLET PO SCH ×2 (10:23→21:22)
[2021-01-01] MEDS: VANCOMYCIN 1 G PREMIX 200 ML IV SCH (10:24)
[2021-01-01] MEDS: ENOXAPARIN 40MG/0.4ML SYR SUBCUT SCH (10:24)
[2021-01-01] MEDS: MORPHINE SULFATE 2 MG/ML CPJ (NOT FOR IM USE) IV PRN (11:22)
[2021-01-01 11:28] LABS: PLATELET ESTIMATE SLIGHTLY INCREASED
[2021-01-01 12:00] VITALS: BP 114/45
[2021-01-01] MEDS ORDERED: ACETAMINOPHEN 650MG SUPP PR PRN (13:15)
[2021-01-01] MEDS ORDERED: ONDANSETRON HCL 4MG/2ML INJ IV PRN (13:15)
[2021-01-01] MEDS: ACETAMINOPHEN 325MG TABLET PO PRN (14:45)
[2021-01-01 16:00] VITALS: BP 119/50
[2021-01-01 17:47] VITALS: BP 119/50
[2021-01-01] MEDS: CEFTRIAXONE 1,000 MG in DEXTROSE 5% WATER 50 ML IV SCH (17:55)
[2021-01-01] MEDS: FUROSEMIDE 40MG/4ML VIAL IVP SCH (17:56)
[2021-01-01 20:00] VITALS: BP 119/46
[2021-01-01 22:16] LABS: INR 1.1; PROTHROMBIN TIME 11.8 sec (9.6-11.0)
[2021-01-01] MEDS: LACTULOSE 20G/30ML UDC PO SCH (23:21)
[2021-01-02] VITALS: BP 124/48
[2021-01-02] MEDS: IPRATROPIUM/ALBUTEROL 0.5-3(2.5)MG/3ML NEB HHN SCH ×2 (02:07→15:06)
[2021-01-02 04:00] VITALS: BP 133/57
[2021-01-02] MEDS: GABAPENTIN 300MG CAPSULE PO SCH ×3 (06:51→21:30)
[2021-01-02] MEDS: HYDRALAZINE HCL 50MG TABLET PO SCH (06:51)
[2021-01-02 06:55] LABS: CHLORIDE 108 mEq/L (98-107)
[2021-01-02 06:59] LABS: HEMATOCRIT. 23.8 % (36.0-48.0); HEMOGLOBIN. 7.8 g/dL (12.0-16.0); MEAN CORPUSCULAR HEMOGLOBIN 28.7 pg (28.0-32.0); MEAN CORPUSCULAR VOLUME 87.6 fL (81.0-99.0); MEAN PLATELET VOLUME 8.1 fl (7.4-10.4); PLATELET 405 x1000/uL (130-400); RED BLOOD CELL COUNT 2.72 mill/uL (4.2-5.4); RED CELL DISTRIBUTION WIDTH 15.7 % (11.6-14.6)
[2021-01-02] MEDS: MORPHINE SULFATE 2 MG/ML CPJ (NOT FOR IM USE) IV PRN ×3 (07:32→16:33)
[2021-01-02 08:00] VITALS: BP 160/64
[2021-01-02] MEDS: FAMOTIDINE 20MG TABLET PO SCH (08:41)
[2021-01-02] MEDS: DOXAZOSIN MESYLATE 4MG TABLET PO SCH ×2 (08:41→21:30)
[2021-01-02] MEDS: ENOXAPARIN 40MG/0.4ML SYR SUBCUT SCH (08:41)
[2021-01-02] MEDS: FUROSEMIDE 40MG/4ML VIAL IVP SCH ×2 (08:41→16:33)
[2021-01-02] MEDS: ATENOLOL 50 MG TABLET PO SCH ×2 (08:42→21:30)
[2021-01-02] MEDS: VANCOMYCIN 1 G PREMIX 200 ML IV SCH (08:42)
[2021-01-02 12:00] VITALS: BP 121/60
[2021-01-02 13:24] LABS: PLATELET ESTIMATE SLIGHTLY INCREASED
[2021-01-02] MEDS: HYDRALAZINE HCL 100MG TABLET PO SCH ×2 (14:06→21:30)
[2021-01-02] MEDS: BUDESONIDE 0.5MG/2ML NEB HHN SCH (15:07)
[2021-01-02] MEDS: ACETAMINOPHEN 325MG TABLET PO PRN ×2 (15:22→21:31)
[2021-01-02 16:00] VITALS: BP 100/50
[2021-01-02 16:27] LABS: HEMATOCRIT 24.9 % (36.0-48.0)
[2021-01-02] MEDS: CEFTRIAXONE 1,000 MG in DEXTROSE 5% WATER 50 ML IV SCH (16:33)
[2021-01-02 20:00] VITALS: BP 128/46
[2021-01-02] MEDS: LACTULOSE 20G/30ML UDC PO SCH (20:00)
[2021-01-03] VITALS: BP 96/38
[2021-01-03 04:00] VITALS: BP 121/45
[2021-01-03 06:21] LABS: HEMATOCRIT. 25.1 % (36.0-48.0); HEMOGLOBIN. 8.1 g/dL (12.0-16.0); MEAN CORPUSCULAR HEMOGLOBIN 28.7 pg (28.0-32.0); MEAN CORPUSCULAR VOLUME 88.8 fL (81.0-99.0); MEAN PLATELET VOLUME 8.3 fl (7.4-10.4); PLATELET 430 x1000/uL (130-400); RED BLOOD CELL COUNT 2.82 mill/uL (4.2-5.4); RED CELL DISTRIBUTION WIDTH 15.6 % (11.6-14.6)
[2021-01-03 06:22] LABS: CHLORIDE 107 mEq/L (98-107)
[2021-01-03] MEDS: HYDRALAZINE HCL 100MG TABLET PO SCH ×3 (06:26→23:55)
[2021-01-03] MEDS: GABAPENTIN 300MG CAPSULE PO SCH ×3 (06:27→23:55)
[2021-01-03 08:00] VITALS: BP 133/50
[2021-01-03] MEDS: VANCOMYCIN 1 G PREMIX 200 ML IV SCH (09:13)
[2021-01-03] MEDS: FUROSEMIDE 40MG/4ML VIAL IVP SCH ×2 (09:13→17:37)
[2021-01-03] MEDS: FAMOTIDINE 20MG TABLET PO SCH (09:13)
[2021-01-03] MEDS: ATENOLOL 50 MG TABLET PO SCH ×2 (09:14→21:59)
[2021-01-03] MEDS: DOXAZOSIN MESYLATE 4MG TABLET PO SCH ×2 (09:14→21:59)
[2021-01-03] MEDS: ACETAMINOPHEN 325MG TABLET PO PRN (09:15)
[2021-01-03] MEDS: BUDESONIDE 0.5MG/2ML NEB HHN SCH (09:43)
[2021-01-03] MEDS: IPRATROPIUM/ALBUTEROL 0.5-3(2.5)MG/3ML NEB HHN SCH ×4 (09:43→21:53)
[2021-01-03 12:00] VITALS: BP 129/52
[2021-01-03 13:38] LABS: PLATELET ESTIMATE INCREASED
[2021-01-03 16:00] VITALS: BP 134/52
[2021-01-03] MEDS: CEFTRIAXONE 1,000 MG in DEXTROSE 5% WATER 50 ML IV SCH (17:37)
[2021-01-03] MEDS: MORPHINE SULFATE 2 MG/ML CPJ (NOT FOR IM USE) IV PRN (17:45)
[2021-01-03 20:00] VITALS: BP 130/52
[2021-01-03] MEDS: LACTULOSE 20G/30ML UDC PO SCH (20:00)
[2021-01-04] VITALS: BP 129/52
[2021-01-04] MEDS: IPRATROPIUM/ALBUTEROL 0.5-3(2.5)MG/3ML NEB HHN SCH ×4 (01:00→21:18)
[2021-01-04 04:00] VITALS: BP 134/53
[2021-01-04] MEDS: ACETAMINOPHEN 325MG TABLET PO PRN ×2 (04:22→13:26)
[2021-01-04] MEDS: HYDRALAZINE HCL 100MG TABLET PO SCH ×3 (06:00→22:03)
[2021-01-04] MEDS: GABAPENTIN 300MG CAPSULE PO SCH ×3 (06:00→22:03)
[2021-01-04 07:59] LABS: CHLORIDE 105 mEq/L (98-107)
[2021-01-04 08:00] VITALS: BP 116/45
[2021-01-04 08:00] LABS: HEMATOCRIT. 23.2 % (36.0-48.0); HEMOGLOBIN. 7.5 g/dL (12.0-16.0); MEAN CORPUSCULAR HEMOGLOBIN 28.3 pg (28.0-32.0); MEAN PLATELET VOLUME 8.4 fl (7.4-10.4); PLATELET 450 x1000/uL (130-400); RED BLOOD CELL COUNT 2.64 mill/uL (4.2-5.4); RED CELL DISTRIBUTION WIDTH 15.4 % (11.6-14.6)
[2021-01-04] MEDS: VANCOMYCIN 1 G PREMIX 200 ML IV SCH (08:31)
[2021-01-04] MEDS: ATENOLOL 50 MG TABLET PO SCH ×2 (08:31→20:59)
[2021-01-04] MEDS: DOXAZOSIN MESYLATE 4MG TABLET PO SCH ×2 (08:31→20:59)
[2021-01-04] MEDS: FAMOTIDINE 20MG TABLET PO SCH (08:31)
[2021-01-04] MEDS: FUROSEMIDE 40MG/4ML VIAL IVP SCH ×2 (08:31→16:54)
[2021-01-04 12:00] VITALS: BP 105/41
[2021-01-04 12:01] LABS: PLATELET ESTIMATE INCREASED
[2021-01-04 16:00] VITALS: BP 110/80
[2021-01-04] MEDS ORDERED: LORATADINE 10MG TABLET PO SCH (16:30)
[2021-01-04] MEDS: CEFTRIAXONE 1,000 MG in DEXTROSE 5% WATER 50 ML IV SCH (16:54)
[2021-01-04] MEDS: LORATADINE 10MG TABLET PO SCH (18:00)
[2021-01-04] MEDS: MORPHINE SULFATE 2 MG/ML CPJ (NOT FOR IM USE) IV PRN (18:15)
[2021-01-04 20:00] VITALS: BP 100/69
[2021-01-04] MEDS: LACTULOSE 20G/30ML UDC PO SCH (20:58)
[2021-01-04 22:03] LABS: HEMATOCRIT 25.6 % (36.0-48.0); HEMOGLOBIN 8.3 g/dL (12.0-16.0)
[2021-01-05] VITALS: BP 132/57
[2021-01-05] MEDS: IPRATROPIUM/ALBUTEROL 0.5-3(2.5)MG/3ML NEB HHN SCH ×3 (01:18→13:12)
[2021-01-05 04:00] VITALS: BP 151/63
[2021-01-05] MEDS: GABAPENTIN 300MG CAPSULE PO SCH ×3 (05:45→21:19)
[2021-01-05] MEDS: HYDRALAZINE HCL 100MG TABLET PO SCH ×3 (05:45→21:19)
[2021-01-05] MEDS: ACETAMINOPHEN 325MG TABLET PO PRN ×4 (05:47→23:54)
[2021-01-05 07:40] LABS: HEMATOCRIT. 24.9 % (36.0-48.0); HEMOGLOBIN. 8.1 g/dL (12.0-16.0); MEAN CORPUSCULAR HEMOGLOBIN 29.2 pg (28.0-32.0); MEAN CORPUSCULAR VOLUME 89.1 fL (81.0-99.0); MEAN PLATELET VOLUME 8.1 fl (7.4-10.4); PLATELET 482 x1000/uL (130-400); RED BLOOD CELL COUNT 2.79 mill/uL (4.2-5.4); RED CELL DISTRIBUTION WIDTH 15.4 % (11.6-14.6)
[2021-01-05 08:00] VITALS: BP 153/55
[2021-01-05 08:07] LABS: CHLORIDE 102 mEq/L (98-107)
[2021-01-05] MEDS: DOXAZOSIN MESYLATE 4MG TABLET PO SCH ×2 (09:53→21:19)
[2021-01-05] MEDS: FUROSEMIDE 40MG/4ML VIAL IVP SCH ×2 (09:54→18:12)
[2021-01-05] MEDS: FAMOTIDINE 20MG TABLET PO SCH (09:54)
[2021-01-05] MEDS: ATENOLOL 50 MG TABLET PO SCH ×2 (09:54→21:19)
[2021-01-05] MEDS: VANCOMYCIN 1 G PREMIX 200 ML IV SCH (09:57)
[2021-01-05] MEDS ORDERED: ACETAMINOPHEN 325MG TABLET PO PRN (10:30)
[2021-01-05 12:00] VITALS: BP 157/61
[2021-01-05] MEDS: LORATADINE 10MG TABLET PO SCH (12:22)
[2021-01-05 14:48] LABS: PLATELET ESTIMATE INCREASED
[2021-01-05 16:00] VITALS: BP 133/54
[2021-01-05] MEDS: CEFTRIAXONE 1,000 MG in DEXTROSE 5% WATER 50 ML IV SCH (17:44)
[2021-01-05 20:00] VITALS: BP 142/53
[2021-01-05] MEDS: LACTULOSE 20G/30ML UDC PO SCH (21:14)
[2021-01-06] VITALS: BP 115/52
[2021-01-06] MEDS: IPRATROPIUM/ALBUTEROL 0.5-3(2.5)MG/3ML NEB HHN SCH ×4 (01:22→21:47)
[2021-01-06 04:00] VITALS: BP 129/53
[2021-01-06] MEDS: HYDRALAZINE HCL 100MG TABLET PO SCH ×3 (05:48→21:55)
[2021-01-06] MEDS: GABAPENTIN 300MG CAPSULE PO SCH ×3 (05:48→21:54)
[2021-01-06 08:00] VITALS: BP 127/48
[2021-01-06] MEDS: FAMOTIDINE 20MG TABLET PO SCH (08:26)
[2021-01-06] MEDS: FUROSEMIDE 40MG/4ML VIAL IVP SCH ×2 (08:26→18:15)
[2021-01-06] MEDS: ATENOLOL 50 MG TABLET PO SCH ×2 (08:27→21:00)
[2021-01-06] MEDS: LORATADINE 10MG TABLET PO SCH (08:27)
[2021-01-06] MEDS: DOXAZOSIN MESYLATE 4MG TABLET PO SCH ×2 (08:27→21:00)
[2021-01-06] MEDS: ACETAMINOPHEN 325MG TABLET PO PRN ×2 (10:40→18:15)
[2021-01-06 12:00] VITALS: BP 125/50
[2021-01-06] MEDS ORDERED: CEFTRIAXONE 1 G PREMIX 50 ML IV SCH (14:00)
[2021-01-06 16:00] VITALS: BP 110/43
[2021-01-06] MEDS ORDERED: CEFTRIAXONE 1,000 MG in DEXTROSE 5% WATER 50 ML IV SCH (17:00)
[2021-01-06] MEDS: AMPICILLIN/SULBACTAM 3G in SODIUM CHLORIDE 0.9% 100ML IV SCH (19:52)
[2021-01-06 20:00] VITALS: BP 110/41
[2021-01-06] MEDS: LACTULOSE 20G/30ML UDC PO SCH ×2 (20:00→21:50)
[2021-01-07] VITALS: BP 118/45
[2021-01-07] MEDS: AMPICILLIN/SULBACTAM 3G in SODIUM CHLORIDE 0.9% 100ML IV SCH ×3 (00:37→13:13)
[2021-01-07] MEDS: IPRATROPIUM/ALBUTEROL 0.5-3(2.5)MG/3ML NEB HHN SCH ×3 (01:12→13:01)
[2021-01-07] MEDS: ACETAMINOPHEN 325MG TABLET PO PRN ×2 (01:41→09:13)
[2021-01-07 04:00] VITALS: BP 141/58
[2021-01-07] MEDS: HYDRALAZINE HCL 100MG TABLET PO SCH ×2 (06:15→13:13)
[2021-01-07] MEDS: GABAPENTIN 300MG CAPSULE PO SCH ×2 (06:16→13:13)
[2021-01-07 06:52] LABS: CHLORIDE 103 mEq/L (98-107)
[2021-01-07 06:58] LABS: HEMATOCRIT. 24.3 % (36.0-48.0); MEAN CORPUSCULAR HEMOGLOBIN 29.7 pg (28.0-32.0); MEAN PLATELET VOLUME 8.3 fl (7.4-10.4); PLATELET 495 x1000/uL (130-400); RED CELL DISTRIBUTION WIDTH 15.2 % (11.6-14.6)
[2021-01-07 08:00] VITALS: BP 149/56
[2021-01-07] MEDS: LORATADINE 10MG TABLET PO SCH (09:09)
[2021-01-07] MEDS: DOXAZOSIN MESYLATE 4MG TABLET PO SCH (09:09)
[2021-01-07] MEDS: ATENOLOL 50 MG TABLET PO SCH (09:09)
[2021-01-07] MEDS: FAMOTIDINE 20MG TABLET PO SCH (09:10)
[2021-01-07] MEDS: FUROSEMIDE 40MG/4ML VIAL IVP SCH (09:10)
[2021-01-07 12:00] VITALS: BP 129/50
[2021-01-07 13:27] LABS: PLATELET ESTIMATE INCREASED
[2021-01-07 16:00] VITALS: BP 134/52
[2021-01-07 17:52] VITALS: BP 142/55
== END 2021-01-07 18:28 | DRG 872 ==
LOC: ER 12:37 → 7EST 19:30 → EDBEDREQ 19:32 → EDBEDREQTM 19:32 → ENRESERV 21:18
PROVIDERS: ADMIT Internal Medicine; ATTEND Internal Medicine
PROC: 0J9P0ZZ Drainage of Left Lower Leg Subcutaneous Tissue and Fascia, Open Approach (ICD-10-PCS; principal; 2020-12-30)
PROC: 5A09557 Assistance with Respiratory Ventilation, Greater than 96 Consecutive Hours, Continuous Positive Airway Pressure (ICD-10-PCS; 2020-12-31)
PROC: 02HV33Z Insertion of Infusion Device into Superior Vena Cava, Percutaneous Approach (ICD-10-PCS; 2021-01-01)
PROC: B548ZZA Ultrasonography of Superior Vena Cava, Guidance (ICD-10-PCS; 2021-01-01)
PROC: 5A09457 Assistance with Respiratory Ventilation, 24-96 Consecutive Hours, Continuous Positive Airway Pressure (ICD-10-PCS; 2021-01-06)
DX: A41.2 Sepsis due to unspecified staphylococcus (principal); L03.116 Cellulitis of left lower limb; E66.2 Morbid (severe) obesity with alveolar hypoventilation; L02.416 Cutaneous abscess of left lower limb; L97.929 Non-pressure chronic ulcer of unspecified part of left lower leg with unspecified severity; Z68.41 Body mass index [BMI] 40.0-44.9, adult; E44.1 Mild protein-calorie malnutrition; D64.9 Anemia, unspecified; E78.5 Hyperlipidemia, unspecified; Z20.822 Contact with and (suspected) exposure to COVID-19; G89.29 Other chronic pain; I10 Essential (primary) hypertension; M19.90 Unspecified osteoarthritis, unspecified site; M48.061 Spinal stenosis, lumbar region without neurogenic claudication; I87.2 Venous insufficiency (chronic) (peripheral); I89.0 Lymphedema, not elsewhere classified; Z88.8 Allergy status to other drugs, medicaments and biological substances; Z79.899 Other long term (current) drug therapy; Z79.891 Long term (current) use of opiate analgesic
CPT/HCPCS: 36415; 71045; 73700; 76937; 80048; 80053; 80202; 82270; 83605; 83880; 84145; 84484; 85014; 85018; 85025; 85044; 86850; 86900; 87070; 87077; 87186; 87426; 93306; 93970; 94640; 94660; 97022; 97110; 97116; 97162; 99291; C1725; J0295; J0696; J1650; J1885; J1940; J2270; J3370; J3490; J7030; J7040; J7050; J7060; J7626